=== PATIENT | male | born 1965 | race Caucasian/White ===

== ENCOUNTER 2022-04-06 15:01 | Emergency (ER) | payer OTHER ==
[~2022-04-06] VITALS: Ht 162.6 cm; Wt 81.6 kg
[2022-04-06] MEDS ORDERED: HYDROCHLOROTHIA25 MG (15:14)
[2022-04-06] MEDS ORDERED: COZAAR100 MG (15:14)
== END 2022-04-06 18:02 | disposition home or self-care (01) ==
LOC: ER 15:01
DX: S09.8XXA Other specified injuries of head, initial encounter (principal); S19.89XA Other specified injuries of other specified part of neck, initial encounter; S39.82XA Other specified injuries of lower back, initial encounter; S49.82XA Other specified injuries of left shoulder and upper arm, initial encounter; W11.XXXA Fall on and from ladder, initial encounter; Y93.89 Activity, other specified; Y92.098 Other place in other non-institutional residence as the place of occurrence of the external cause; M51.37 Other intervertebral disc degeneration, lumbosacral region; I10 Essential (primary) hypertension

== ENCOUNTER 2025-05-05 07:05 | Outpatient (CLI) | payer OTHER ==
[~2025-05-05 07:05] MED LIST: COZAAR100 MG; HYDROCHLOROTHIA25 MG
== END 2025-05-05 07:06 | disposition home or self-care (01) ==
LOC: SONOGRAMA 07:05
DX: R94.5 Abnormal results of liver function studies (principal)